=== PATIENT | female | born 1995 | race Caucasian/White ===

== ENCOUNTER 2017-03-28 06:41 | Emergency (ER) | payer OTHER ==
[2017-03-28 07:29] LABS: microscopic required? NO
[2017-03-28 07:47] LABS: BASOPHIL % 0.4 % (0-2); CALCIUM 8.6 mg/dL (8.5-10.1); CARBON DIOXIDE 27.6 mmol/L (21-32); CHLORIDE SERUM 105 mmol/L (98-107); CREATININE SERUM 0.8 mg/dL (0.6-1.0); GFR1 > 60 mL/min; GLUCOSE SERUM 105 mg/dL (74-106); PLATELET COUNT 256 x10^3mcL (130-400); POTASSIUM SERUM 3.9 mmol/L (3.5-5.1); RED CELL DISTRIBUTION WIDTH 13.1 % (11.5-14.5); SODIUM SERUM 140 mmol/L (136-145)
[2017-03-28 07:52] LABS: ALBUMIN 3.7 g/dL (3.4-5.0); ALKALINE PHOSPHATASE 69 U/L (46-116); ALT/SGPT 32 U/L (14-59); AMYLASE 46 U/L (25-115); AST/SGOT 22 U/L (15-37); BILIRUBIN TOTAL 0.16 mg/dL (0.20-1.00); LIPASE 177 IU/L (73-393); TOTAL PROTEIN, SERUM 7.9 g/dL (6.4-8.2)
[2017-03-28 07:54] LABS: UA SPECIFIC GRAVITY <=1.005 (1.005-1.035); urine erythrocyte NEGATIVE (NEGATIVE)
[2017-03-28 08:03] LABS: AMPHETAMINE QUAL UR NONE DETECTED (NEG <=1000)
[2017-03-28 10:36] VITALS: BP 116/79
== END 2017-03-28 10:36 | disposition home or self-care (01) ==
LOC: ED 06:41
PROVIDERS: Emergency Medicine
DX: N83.201 Unspecified ovarian cyst, right side (principal); R51 Headache; J45.909 Unspecified asthma, uncomplicated
CPT/HCPCS: 83880; 87491; 87591; J2405

== ENCOUNTER 2017-04-14 22:34 | Emergency (ER) | payer OTHER | END 2017-04-14 23:53 | disposition left against medical advice (07) | LOC: ED 22:34 | DX: Z53.21 Procedure and treatment not carried out due to patient leaving prior to being seen by health care provider (principal) ==

== ENCOUNTER 2017-04-21 12:18 | Emergency (ER) | payer OTHER ==
[2017-04-21 12:20] VITALS: BP 118/57
== END 2017-04-21 14:02 | disposition home or self-care (01) ==
LOC: ED 12:18
DX: H66.92 Otitis media, unspecified, left ear (principal); J45.909 Unspecified asthma, uncomplicated; R11.10 Vomiting, unspecified

== ENCOUNTER 2018-03-09 15:42 | Emergency (ER) | payer OTHER ==
[~2018-03-09] VITALS: Ht 149.9 cm; Wt 67.8 kg
[2018-03-09 15:51] VITALS: BP 132/75; Ht 149.9 cm; Wt 67.8 kg
== END 2018-03-09 17:01 | disposition home or self-care (01) ==
LOC: ED 15:42
DX: M53.3 Sacrococcygeal disorders, not elsewhere classified (principal); J45.909 Unspecified asthma, uncomplicated

== ENCOUNTER 2018-03-18 20:05 | Emergency (ER) | payer OTHER ==
[~2018-03-18] VITALS: Ht 149.9 cm; Wt 66.7 kg
[2018-03-18 20:19] VITALS: Ht 149.9 cm; Wt 66.7 kg
[2018-03-18 23:12] VITALS: BP 117/60
== END 2018-03-18 23:12 | disposition home or self-care (01) ==
LOC: ED 20:05
DX: M46.1 Sacroiliitis, not elsewhere classified (principal); J45.909 Unspecified asthma, uncomplicated
CPT/HCPCS: J1885

== ENCOUNTER 2018-05-23 09:17 | Emergency (ER) | payer OTHER ==
[~2018-05-23] VITALS: Ht 149.9 cm; Wt 66.7 kg
[2018-05-23 09:28] VITALS: BP 155/72; Ht 149.9 cm; Wt 66.7 kg
== END 2018-05-23 11:05 | disposition home or self-care (01) ==
LOC: ED 09:17
DX: M54.5 Low back pain (principal); J45.909 Unspecified asthma, uncomplicated

== ENCOUNTER 2018-06-29 00:37 | Emergency (ER) | payer OTHER ==
[~2018-06-29] VITALS: Ht 149.9 cm; Wt 67.1 kg
[2018-06-29 00:42] VITALS: Ht 149.9 cm; Wt 67.1 kg
[2018-06-29 02:51] LABS: microscopic required? YES; urine erythrocyte TRACE (NEGATIVE)
[2018-06-29 03:35] VITALS: BP 117/63
== END 2018-06-29 03:35 | disposition home or self-care (01) ==
LOC: ED 00:37
PROVIDERS: Emergency Medicine
DX: B37.3 Candidiasis of vulva and vagina (principal); N76.0 Acute vaginitis; R10.2 Pelvic and perineal pain; J45.909 Unspecified asthma, uncomplicated
CPT/HCPCS: 87491; 87591; J1885

== ENCOUNTER 2018-09-12 14:39 | Emergency (ER) | payer OTHER ==
[~2018-09-12] VITALS: Ht 149.9 cm; Wt 62.8 kg
[2018-09-12 14:48] VITALS: Ht 149.9 cm; Wt 62.8 kg
[2018-09-12 16:28] VITALS: BP 124/72
== END 2018-09-12 16:28 | disposition home or self-care (01) ==
LOC: ED 14:39
DX: S09.8XXA Other specified injuries of head, initial encounter (principal); J45.909 Unspecified asthma, uncomplicated; V00.131A Fall from skateboard, initial encounter; Y93.21 Activity, ice skating; Y92.89 Other specified places as the place of occurrence of the external cause; Y99.8 Other external cause status
CPT/HCPCS: J0780; J1885

== ENCOUNTER 2018-11-15 11:20 | Emergency (ER) | payer OTHER ==
[~2018-11-15] VITALS: Ht 149.9 cm; Wt 67.1 kg
[2018-11-15 11:31] VITALS: Ht 149.9 cm; Wt 67.1 kg
[2018-11-15 13:05] LABS: BASOPHIL % 0.3 % (0-2); PLATELET COUNT 353 x10^3mcL (130-400); RED CELL DISTRIBUTION WIDTH 13.1 % (11.5-14.5)
[2018-11-15 13:20] LABS: CALCIUM 9.4 mg/dL (8.5-10.1); CARBON DIOXIDE 29.7 mmol/L (21-32); CHLORIDE SERUM 101 mmol/L (98-107); GFR1 > 60 mL/min; GLUCOSE SERUM 95 mg/dL (74-106); SODIUM SERUM 140 mmol/L (136-145)
[2018-11-15 13:22] LABS: ALBUMIN 4.4 g/dL (3.4-5.0); ALKALINE PHOSPHATASE 81 U/L (46-116); ALT/SGPT 27 U/L (14-59); AST/SGOT 29 U/L (15-37); BILIRUBIN TOTAL 0.6 mg/dL (0.20-1.00); LIPASE 117 IU/L (73-393)
[2018-11-15 14:29] VITALS: BP 122/71
== END 2018-11-15 14:29 | disposition home or self-care (01) ==
LOC: ED 11:20
PROVIDERS: Emergency Medicine
DX: K29.00 Acute gastritis without bleeding (principal); J45.909 Unspecified asthma, uncomplicated
CPT/HCPCS: J2405; J7030

== ENCOUNTER 2018-12-31 17:56 | Emergency (ER) | payer OTHER ==
[~2018-12-31] VITALS: Ht 149.9 cm; Wt 64.9 kg
[2018-12-31 18:12] VITALS: Ht 149.9 cm; Wt 64.9 kg
[2018-12-31 19:37] LABS: BASOPHIL % 0.6 % (0-2); PLATELET COUNT 268 x10^3mcL (130-400); RED CELL DISTRIBUTION WIDTH 13.3 % (11.5-14.5)
[2018-12-31 19:59] LABS: ALBUMIN 3.8 g/dL (3.4-5.0); ALKALINE PHOSPHATASE 58 U/L (46-116); ALT/SGPT 28 U/L (14-59); AST/SGOT 22 U/L (15-37); BILIRUBIN TOTAL 0.18 mg/dL (0.20-1.00); CARBON DIOXIDE 27.1 mmol/L (21-32); CHLORIDE SERUM 102 mmol/L (98-107); CREATININE SERUM 0.8 mg/dL (0.6-1.0); GFR1 > 60 mL/min; GLUCOSE SERUM 80 mg/dL (74-106); LIPASE 152 IU/L (73-393); POTASSIUM SERUM 4.1 mmol/L (3.5-5.1); SODIUM SERUM 137 mmol/L (136-145); TOTAL PROTEIN, SERUM 7.6 g/dL (6.4-8.2)
[2018-12-31 21:01] VITALS: BP 119/62
== END 2018-12-31 20:56 | disposition home or self-care (01) ==
LOC: ED 17:56
PROVIDERS: Emergency Medicine
DX: J45.909 Unspecified asthma, uncomplicated (principal); N30.91 Cystitis, unspecified with hematuria; Z98.890 Other specified postprocedural states
CPT/HCPCS: 36415

== ENCOUNTER 2019-01-09 12:26 | Emergency (ER) | payer OTHER ==
[~2019-01-09] VITALS: Ht 149.9 cm; Wt 63.5 kg
[2019-01-09 12:26] VITALS: Ht 149.9 cm; Wt 63.5 kg
[2019-01-09 13:37] LABS: BASOPHIL % 0.3 % (0-2); PLATELET COUNT 275 x10^3mcL (130-400)
[2019-01-09 13:51] LABS: CALCIUM 9.7 mg/dL (8.5-10.1); CARBON DIOXIDE 30.3 mmol/L (21-32); CHLORIDE SERUM 103 mmol/L (98-107); GFR1 > 60 mL/min; GLUCOSE SERUM 103 mg/dL (74-106); POTASSIUM SERUM 3.9 mmol/L (3.5-5.1); SODIUM SERUM 139 mmol/L (136-145)
[2019-01-09 13:56] LABS: ALBUMIN 3.9 g/dL (3.4-5.0); ALKALINE PHOSPHATASE 66 U/L (46-116); ALT/SGPT 25 U/L (14-59); AST/SGOT 19 U/L (15-37); BILIRUBIN TOTAL 0.39 mg/dL (0.20-1.00); TOTAL PROTEIN, SERUM 7.6 g/dL (6.4-8.2)
[2019-01-09 14:02] LABS: UA SPECIFIC GRAVITY 1.025 (1.005-1.035); microscopic required? YES; urine erythrocyte 3+ (NEGATIVE)
[2019-01-09 16:04] VITALS: BP 125/69
== END 2019-01-09 16:04 | disposition home or self-care (01) ==
LOC: ED 12:26
PROVIDERS: Emergency Medicine
DX: N94.6 Dysmenorrhea, unspecified (principal); R55 Syncope and collapse; J45.909 Unspecified asthma, uncomplicated; F17.200 Nicotine dependence, unspecified, uncomplicated; Z98.51 Tubal ligation status; Z98.890 Other specified postprocedural states
CPT/HCPCS: J1885; J2405; J7030